=== PATIENT | male | born 1985 | race African-American/Black ===

== ENCOUNTER 2022-05-07 08:27 | Emergency (ER) | payer SELFPAY ==
[2022-05-07 08:47] VITALS: BP 126/85; PULSE 91; TEMP 98.2; BMI 27.8
[2022-05-07] MEDS ORDERED: FAMOTIDINE 20 MG TABLET PO ONE (09:36)
[2022-05-07] MEDS ORDERED: MAG HYDROX/AL HYDROX/SIMETH -MYLANTA- ORAL SUSPENSION PO ONE (09:36)
[2022-05-07] MEDS ORDERED: MAG HYDROX/AL HYDROX/SIMETH 30 ML UNIT-DOSE CUP ONE (09:45)
[2022-05-07] MEDS ORDERED: FAMOTIDINE 20 MG TABLET ONE (09:45)
[2022-05-07] MEDS ORDERED: LIDOCAINE HCL 1%, 10 MG/ML (50 mL VIAL) INF ONE (10:12)
[2022-05-07 10:16] LABS: BASO % 0.6 % (0-2.0); HEMATOCRIT 42.6 % (35.4-49); HEMOGLOBIN 14.2 GM/dL (11.7-16.9); LYMPH % 34.2 % (8-40); MCH 29.4 pg (25.7-33.7); MCHC 33.3 g/dl (32.0-35.9); MEAN CELL VOLUME 88.2 fl (80-96); MEAN PLT VOLUME 7.9 fl (7.5-11.1); MONO % 8.4 % (3.8-10.2); NEUT % 54.8 % (42.8-82.8); PLATELET COUNT 213 10^3/uL (134-434); RBC 4.83 M/mm3 (4.00-5.60); RDW 13.7 % (11.9-15.9); WHITE BLOOD COUNT 4.6 K/mm3 (4.0-10.0)
[2022-05-07] MEDS ORDERED: LIDOCAINE HCL 1%, 10 MG/ML (20ML VIAL) ONE (10:20)
[2022-05-07] MEDS ORDERED: BUPIVACAINE HCL/PF 0.5% (5MG/ML) 10 ML VIAL ONE (10:20)
[2022-05-07] MEDS ORDERED: BUPIVACAINE HCL/PF 0.5% (5 MG/ML) 30 ML VIAL IJ ONE (10:22)
[2022-05-07 10:53] LABS: ALBUMIN 3.8 g/dl (3.4-5.0); BLOOD UREA NITROGEN 10.1 mg/dL (7-18)
[2022-05-07 10:57] LABS: BILIRUBIN,TOTAL 0.3 mg/dL (0.2-1); TOT PROT 7.4 g/dl (6.4-8.2)
[2022-05-07] MEDS ORDERED: SODIUM CHLORIDE 1,000 ML IV ONE (11:52)
[2022-05-07] MEDS ORDERED: oxyCODONE HCL 5 MG TABLET PO ONE (13:41)
[2022-05-07] MEDS ORDERED: oxyCODONE HCL 5 MG TABLET ONE (13:46)
== END 2022-05-07 15:21 | disposition home or self-care (01) ==
LOC: JER 08:27
PROC: 3E0337Z Introduction of Electrolytic and Water Balance Substance into Peripheral Vein, Percutaneous Approach (ICD-10-PCS; principal; 2022-05-07)
DX: R42 Dizziness and giddiness (principal); K08.89 Other specified disorders of teeth and supporting structures
CPT/HCPCS: 36415; 71046-TC-FY; 80053; 84484; 85025; 93005; 93010; 99285-25

== ENCOUNTER 2022-05-29 22:14 | Emergency (ER) | payer SELFPAY ==
[2022-05-29 22:28] VITALS: BP 134/92; PULSE 104; RESP 20; TEMP 98.8; BMI 27.8
[2022-05-29] MEDS ORDERED: CLINDAMYCIN HCL 150 MG CAPSULE (FP) PO ONE (22:50)
[2022-05-29] MEDS ORDERED: KETOROLAC TROMETHAMINE 30 MG/1 ML VIAL IM ONE (22:50)
[2022-05-29] MEDS ORDERED: CLINDAMYCIN HCL 150 MG CAPSULE (FP) ONE (22:51)
[2022-05-29] MEDS ORDERED: KETOROLAC TROMETHAMINE 30 MG/1 ML VIAL ONE (22:51)
== END 2022-05-30 01:07 | disposition home or self-care (01) ==
LOC: JER 22:14
PROC: 3E0233Z Introduction of Anti-inflammatory into Muscle, Percutaneous Approach (ICD-10-PCS; principal; 2022-05-29)
DX: L03.115 Cellulitis of right lower limb (principal)
CPT/HCPCS: 73590-TC-RT-FY; 93971-TC; 99284-25

== ENCOUNTER 2022-09-06 12:59 | Emergency (ER) | payer BC ==
[2022-09-06 13:05] VITALS: BP 152/97; PULSE 78; RESP 20; TEMP 98.7; BMI 24.4
[2022-09-06] MEDS ORDERED: MAG HYDROX/AL HYDROX/SIMETH -MYLANTA- ORAL SUSPENSION PO ONE (15:03)
[2022-09-06] MEDS ORDERED: ACETAMINOPHEN 1000 MG/100 ML BAG IVPB ONE (15:03)
[2022-09-06] MEDS ORDERED: SODIUM CHLORIDE 0.9% 500 ML INFUS.BAG IV ONE (15:03)
[2022-09-06] MEDS ORDERED: FAMOTIDINE 20 MG/50 ML IVPB 20 MG/50 ML MG IVPB ONE ×2 (15:03→15:09)
[2022-09-06] MEDS ORDERED: MAG HYDROX/AL HYDROX/SIMETH 30 ML UNIT-DOSE CUP ONE (15:09)
[2022-09-06] MEDS ORDERED: ACETAMINOPHEN INJECTION 100 ML IVPB ONE (15:10)
[2022-09-06 16:01] LABS: PH,URINE 7.5 (5.0-8.0); URINE APPEARANCE CLOUDY; URINE BILIRUBIN NEGATIVE (NEGATIVE); URINE COLOR YELLOW; URINE GLUCOSE (UA) NEGATIVE (NEGATIVE); URINE KETONE NEGATIVE (NEGATIVE); URINE LEUK ESTERASE NEGATIVE (NEGATIVE); URINE NITRITE NEGATIVE (NEGATIVE); URINE PROTEIN NEGATIVE (NEGATIVE); URINE UROBILINOGEN 0.2 mg/dL (0.2-1.0)
[2022-09-06 16:03] LABS: BASO % 0.6 % (0-2.0); EOS % 1.4 % (0-4.5); HEMOGLOBIN 13.9 GM/dL (11.7-16.9); LYMPH % 35.7 % (8-40); MCH 29.2 pg (25.7-33.7); MCHC 32.3 g/dl (32.0-35.9); MEAN CELL VOLUME 90.3 fl (80-96); MEAN PLT VOLUME 8.5 fl (7.5-11.1); MONO % 5.7 % (3.8-10.2); NEUT % 56.6 % (42.8-82.8); PLATELET COUNT 208 10^3/uL (134-434); RBC 4.76 M/mm3 (4.00-5.60); RDW 14.3 % (11.9-15.9); WHITE BLOOD COUNT 5.2 K/mm3 (4.0-10.0)
[2022-09-06 16:24] LABS: CALCIUM 9.1 mg/dL (8.5-10.1)
[2022-09-06 16:25] LABS: BLOOD UREA NITROGEN 9.4 mg/dL (7-18)
[2022-09-06 16:29] LABS: TOT PROT 7.7 g/dl (6.4-8.2)
[2022-09-06 16:30] LABS: BILIRUBIN,TOTAL 0.3 mg/dL (0.2-1)
== END 2022-09-06 17:23 | disposition home or self-care (01) ==
LOC: JER 12:59
PROC: 3E0333Z Introduction of Anti-inflammatory into Peripheral Vein, Percutaneous Approach (ICD-10-PCS; principal; 2022-09-06)
PROC: 3E033GC Introduction of Other Therapeutic Substance into Peripheral Vein, Percutaneous Approach (ICD-10-PCS; 2022-09-06)
DX: K29.00 Acute gastritis without bleeding (principal)
CPT/HCPCS: 36415; 80053; 81003; 83690; 85025; 87077; 87086; 99284-25

== ENCOUNTER 2022-09-18 10:51 | Emergency (ER) | payer BC ==
[2022-09-18 11:02] VITALS: BP 102/72; PULSE 78; RESP 18; TEMP 97.8; BMI 26.0
[2022-09-18] MEDS ORDERED: FAMOTIDINE 20 MG/50 ML IVPB 20 MG/50 ML MG IVPB ONE ×2 (12:43→12:53)
[2022-09-18] MEDS ORDERED: SODIUM CHLORIDE 1,000 ML IV STA (12:43)
[2022-09-18] MEDS ORDERED: METOCLOPRAMIDE HCL INJECTION 10 MG/2 ML VIAL IVPB ONE (12:43)
[2022-09-18] MEDS ORDERED: ACETAMINOPHEN 1000 MG/100 ML BAG IVPB ONE (12:43)
[2022-09-18] MEDS ORDERED: MAG HYDROX/AL HYDROX/SIMETH 30 ML UNIT-DOSE CUP PO ONE (12:47)
[2022-09-18] MEDS ORDERED: ACETAMINOPHEN INJECTION 100 ML IVPB ONE (12:53)
[2022-09-18] MEDS ORDERED: METOCLOPRAMIDE HCL INJECTION 10 MG/2 ML VIAL ONE (12:53)
[2022-09-18] MEDS ORDERED: MAG HYDROX/AL HYDROX/SIMETH 30 ML UNIT-DOSE CUP ONE (12:53)
[2022-09-18 13:17] LABS: BASO % 0.8 % (0-2.0); EOS % 1.7 % (0-4.5); HEMATOCRIT 45.4 % (35.4-49); HEMOGLOBIN 14.7 GM/dL (11.7-16.9); LYMPH % 35.7 % (8-40); MCHC 32.4 g/dl (32.0-35.9); MEAN CELL VOLUME 89.3 fl (80-96); MEAN PLT VOLUME 7.8 fl (7.5-11.1); MONO % 7.5 % (3.8-10.2); NEUT % 54.3 % (42.8-82.8); PLATELET COUNT 223 10^3/uL (134-434); RBC 5.09 M/mm3 (4.00-5.60); RDW 13.9 % (11.9-15.9); WHITE BLOOD COUNT 5.3 K/mm3 (4.0-10.0)
[2022-09-18 13:39] LABS: CALCIUM 9.6 mg/dL (8.5-10.1)
[2022-09-18 13:40] LABS: ALBUMIN 3.9 g/dl (3.4-5.0); BLOOD UREA NITROGEN 10.6 mg/dL (7-18)
[2022-09-18 13:43] LABS: CREATININE 0.9 mg/dL (0.55-1.3)
[2022-09-18 13:44] LABS: TOT PROT 7.4 g/dl (6.4-8.2)
[2022-09-18 13:45] LABS: BILIRUBIN,TOTAL 0.5 mg/dL (0.2-1)
== END 2022-09-18 16:55 | disposition home or self-care (01) ==
LOC: JER 10:51
PROC: 3E0333Z Introduction of Anti-inflammatory into Peripheral Vein, Percutaneous Approach (ICD-10-PCS; principal; 2022-09-18)
PROC: 3E033GC Introduction of Other Therapeutic Substance into Peripheral Vein, Percutaneous Approach (ICD-10-PCS; 2022-09-18)
PROC: 3E033GC Introduction of Other Therapeutic Substance into Peripheral Vein, Percutaneous Approach (ICD-10-PCS; 2022-09-18)
PROC: 3E0337Z Introduction of Electrolytic and Water Balance Substance into Peripheral Vein, Percutaneous Approach (ICD-10-PCS; 2022-09-18)
DX: R10.84 Generalized abdominal pain (principal); R94.31 Abnormal electrocardiogram [ECG] [EKG]; R07.9 Chest pain, unspecified
CPT/HCPCS: 36415; 71046-TC-FY; 74177-TC; 80053; 83690; 84484; 85025; 93005; 93010; 99285-25

== ENCOUNTER 2022-10-21 11:59 | Emergency (ER) | payer BC ==
[2022-10-21 12:06] VITALS: BP 126/79; PULSE 97; RESP 18; TEMP 98.4; BMI 26.2
[2022-10-21] MEDS ORDERED: SODIUM CHLORIDE 1,000 ML IV STA (12:45)
[2022-10-21] MEDS ORDERED: ACETAMINOPHEN 1000 MG/100 ML BAG IVPB ONE (12:45)
[2022-10-21] MEDS ORDERED: ACETAMINOPHEN INJECTION 100 ML IVPB ONE (12:53)
[2022-10-21 13:11] LABS: PH,URINE 5.5 (5.0-8.0); URINE APPEARANCE CLEAR; URINE BILIRUBIN NEGATIVE (NEGATIVE); URINE COLOR YELLOW; URINE GLUCOSE (UA) NEGATIVE (NEGATIVE); URINE KETONE TRACE (NEGATIVE); URINE LEUK ESTERASE NEGATIVE (NEGATIVE); URINE NITRITE NEGATIVE (NEGATIVE); URINE PROTEIN NEGATIVE (NEGATIVE); URINE UROBILINOGEN 0.2 mg/dL (0.2-1.0)
[2022-10-21 13:12] LABS: BASO % 0.2 % (0-2.0); EOS % 0.2 % (0-4.5); HEMATOCRIT 40.6 % (35.4-49); HEMOGLOBIN 12.9 GM/dL (11.7-16.9); LYMPH % 12.3 % (8-40); MCHC 31.9 g/dl (32.0-35.9); MEAN CELL VOLUME 87.8 fl (80-96); MEAN PLT VOLUME 7.4 fl (7.5-11.1); MONO % 7.8 % (3.8-10.2); NEUT % 79.5 % (42.8-82.8); PLATELET COUNT 224 10^3/uL (134-434); RBC 4.62 M/mm3 (4.00-5.60); RDW 13.5 % (11.9-15.9); WHITE BLOOD COUNT 12.1 K/mm3 (4.0-10.0)
[2022-10-21 13:32] LABS: ALBUMIN 3.8 g/dl (3.4-5.0); BLOOD UREA NITROGEN 10.5 mg/dL (7-18); CALCIUM 9.3 mg/dL (8.5-10.1)
[2022-10-21 13:37] LABS: BILIRUBIN,TOTAL 0.4 mg/dL (0.2-1); TOT PROT 7.6 g/dl (6.4-8.2)
== END 2022-10-21 18:58 | disposition home or self-care (01) ==
LOC: JERFT 11:59
PROC: 3E033GC Introduction of Other Therapeutic Substance into Peripheral Vein, Percutaneous Approach (ICD-10-PCS; principal; 2022-10-21)
DX: K60.2 Anal fissure, unspecified (principal); R10.31 Right lower quadrant pain
CPT/HCPCS: 36415; 74177-TC; 80053; 81003; 83690; 85025; 87077; 87086; 99285-25

== ENCOUNTER 2022-11-01 05:21 | Day surgery (SDC) | payer BC, OTHER ==
[2022-10-31 14:58] VITALS: BMI 26.2
[2022-11-01 11:53] VITALS: BP 134/95; PULSE 69; RESP 14; TEMP 98
== END 2022-11-01 12:49 | disposition home or self-care (01) ==
LOC: JASU-ENDO 05:21
PROVIDERS: ATTEND Student in an Organized Health Care Education/Training Program
PROC: 0DB78ZX Excision of Stomach, Pylorus, Via Natural or Artificial Opening Endoscopic, Diagnostic (ICD-10-PCS; 2022-11-01)
PROC: 0DB68ZX Excision of Stomach, Via Natural or Artificial Opening Endoscopic, Diagnostic (ICD-10-PCS; 2022-11-01)
PROC: 0DB98ZX Excision of Duodenum, Via Natural or Artificial Opening Endoscopic, Diagnostic (ICD-10-PCS; principal; 2022-11-01 09:30)
DX: K29.00 Acute gastritis without bleeding (principal); B96.81 Helicobacter pylori [H. pylori] as the cause of diseases classified elsewhere
CPT/HCPCS: 88305-TC; 88341-TC; 88342-TC

== ENCOUNTER 2024-05-01 18:00 | Emergency (ER) | payer OTHER ==
[2024-05-01 18:08] VITALS: BP 130/92; PULSE 103; RESP 18; TEMP 98; BMI 29.8
[2024-05-01] MEDS ORDERED: ACETAMINOPHEN INJECTION 100 ML IVPB ONE (20:21)
[2024-05-01] MEDS: ACETAMINOPHEN 1000 MG/100 ML BAG IVPB ONE (20:32)
[2024-05-01 20:36] LABS: BASO % 0.5 % (0-2.0); EOS % 1.4 % (0-4.5); HEMATOCRIT 41.7 % (35.4-49); HEMOGLOBIN 14.2 GM/dL (11.7-16.9); MCH 29.9 pg (25.7-33.7); MCHC 33.9 g/dl (32.0-35.9); MEAN CELL VOLUME 88.3 fl (80-96); MEAN PLT VOLUME 7.7 fl (7.5-11.1); MONO % 7.5 % (3.8-10.2); NEUT % 61.6 % (42.8-82.8); PLATELET COUNT 214 10^3/uL (134-434); RBC 4.73 M/mm3 (4.00-5.60); RDW 14.4 % (11.9-15.9); WHITE BLOOD COUNT 6.2 K/mm3 (4.0-10.0)
[2024-05-01 20:59] LABS: POTASSIUM 4.5 mmol/L (3.5-5.1)
[2024-05-01 21:02] LABS: CALCIUM 9.5 mg/dL (8.5-10.1)
[2024-05-01 21:03] LABS: BLOOD UREA NITROGEN 11.1 mg/dL (7-18)
[2024-05-01 21:06] LABS: CREATININE 0.9 mg/dL (0.55-1.3)
[2024-05-01 21:07] LABS: BILIRUBIN,TOTAL 0.2 mg/dL (0.2-1); TOT PROT 7.7 g/dl (6.4-8.2)
[2024-05-01 21:22] LABS: INR 0.88 (0.83-1.09)
== END 2024-05-01 23:50 | disposition home or self-care (01) ==
LOC: JER 18:00
DX: R07.9 Chest pain, unspecified (principal); R42 Dizziness and giddiness; R11.2 Nausea with vomiting, unspecified
CPT/HCPCS: 36415; 71045-TC-FY; 80053; 84484; 85025; 85379; 85610; 85730; 93005; 93010; 99285-25

== ENCOUNTER 2024-11-07 06:25 | Emergency (ER) | payer OTHER ==
[2024-11-07] MEDS ORDERED: methylPREDNISolone NA SUCC 125 MG/2 ML VIAL ONE (06:42)
[2024-11-07 06:43] VITALS: BMI 29.8
[2024-11-07] MEDS: methylPREDNISolone NA SUCC 125 MG/2 ML VIAL IVPB ONE (06:44)
[2024-11-07 17:11] VITALS: BP 132/89; PULSE 89; RESP 19; TEMP 98.6
== END 2024-11-07 17:11 | disposition home or self-care (01) ==
LOC: JER 06:25
PROC: 3E033GC Introduction of Other Therapeutic Substance into Peripheral Vein, Percutaneous Approach (ICD-10-PCS; principal; 2024-11-07)
PROC: 3E033GC Introduction of Other Therapeutic Substance into Peripheral Vein, Percutaneous Approach (ICD-10-PCS; 2024-11-07)
DX: K13.0 Diseases of lips (principal); T78.3XXA Angioneurotic edema, initial encounter
CPT/HCPCS: 36430; 86850; 86900; 86901; 99285-25; P9017

== ENCOUNTER 2025-01-24 13:20 | Emergency (ER) | payer OTHER ==
[2025-01-24 13:30] VITALS: TEMP 98.1; BMI 29.8
[2025-01-24] MEDS ORDERED: ONDANSETRON 4 MG/2 ML VIAL ONE (14:26)
[2025-01-24] MEDS ORDERED: FAMOTIDINE 20 MG/50 ML IVPB 20 MG/50 ML MG IVPB ONE (14:27)
[2025-01-24] MEDS: FAMOTIDINE 20 MG/50 ML IVPB 20 MG/50 ML MG IVPB ONE (14:33)
[2025-01-24] MEDS: ONDANSETRON 4 MG/2 ML VIAL IVPUSH ONE (14:33)
[2025-01-24] MEDS: SODIUM CHLORIDE 1,000 ML IV STA (14:33)
[2025-01-24 14:39] LABS: HEMATOCRIT 43.9 % (40.1-51.0); MCHC 31.9 g/dl (32.3-36.5); MEAN CELL VOLUME 89.6 fl (79.0-92.2); MEAN PLT VOLUME 9.5 fl (9.4-12.4); PLATELET COUNT 202 x10^3/uL (163-337); RDW 14.6 % (12.0-15.6)
[2025-01-24 14:45] LABS: INR 0.99 (0.83-1.09); PROTHROMBIN TIME (PATIENT) 10.8 SEC (9.7-13.0)
[2025-01-24 14:48] LABS: ACTIVATED PTT 38.1 SECONDS (25.2-36.5)
[2025-01-24 14:55] LABS: POTASSIUM 4.3 mmol/L (3.5-5.1)
[2025-01-24 14:58] LABS: ALBUMIN 4.1 g/dl (3.4-5.0); CALCIUM 9.1 mg/dL (8.5-10.1)
[2025-01-24 14:59] LABS: BLOOD UREA NITROGEN 10.3 mg/dL (7-18); MAGNESIUM 2.4 mg/dL (1.8-2.4)
[2025-01-24 15:03] LABS: BILIRUBIN,TOTAL 0.4 mg/dL (0.2-1); TOT PROT 7.6 g/dl (6.4-8.2)
[2025-01-24 16:27] VITALS: BP 144/114; PULSE 84; RESP 20
== END 2025-01-24 16:27 | disposition home or self-care (01) ==
LOC: JER 13:20
PROC: 3E033GC Introduction of Other Therapeutic Substance into Peripheral Vein, Percutaneous Approach (ICD-10-PCS; principal; 2025-01-24)
PROC: 3E033GC Introduction of Other Therapeutic Substance into Peripheral Vein, Percutaneous Approach (ICD-10-PCS; 2025-01-24)
DX: R07.89 Other chest pain (principal); R11.2 Nausea with vomiting, unspecified; R00.0 Tachycardia, unspecified
CPT/HCPCS: 0241U-QW; 36415; 71045-TC-FY; 80053; 80307; 82550; 82553; 82962; 83735; 84484; 85027; 85610; 85730; 93005; 93010; 99285-25